=== PATIENT | male | born 1960 | race African-American/Black ===

== ENCOUNTER 2017-04-16 13:31 | Emergency (ER) | payer MEDICAID, OTHER ==
[~2017-04-16] VITALS: Ht 185.4 cm; Wt 88.6 kg
[2017-04-16] MEDS ORDERED: SULFAMETHOX/TRIMETH DS 800-160 MG/TABLET PO ONE (15:30)
[2017-04-16] MEDS ORDERED: CefTRIAXone SODIUM 1 GM/VIAL IM ONE (15:30)
[2017-04-16] MEDS ORDERED: LIDOCAINE HCL/PF 1% 2 ML VIAL IM ONE (15:30)
[2017-04-16] MEDS ORDERED: LIDOCAINE HCL 1% 10 ML VIAL INJ ONE (15:30)
[2017-04-16 15:34] VITALS: BP 153/110
== END 2017-04-16 16:31 | disposition home or self-care (01) ==
LOC: EMS 13:33
DX: L02.01 Cutaneous abscess of face (principal); L03.211 Cellulitis of face; R03.0 Elevated blood-pressure reading, without diagnosis of hypertension
CPT/HCPCS: 10060; 96372; 99283; J0696; J3490 ×2

== ENCOUNTER 2020-04-25 22:12 | Emergency (ER) | payer MEDICAID ==
[~2020-04-25] VITALS: Ht 185.4 cm; Wt 88.6 kg
[2020-04-25] MEDS ORDERED: KETOROLAC TROMETHAMINE 30 MG/ML VIAL IM ONE (22:45)
[2020-04-25] MEDS ORDERED: ACETAMINOPHEN 500 MG TABLET PO ONE (22:45)
[2020-04-25] MEDS ORDERED: LIDOCAINE 5% TRANSDERMAL PATCH TD ONE (22:45)
[2020-04-25 23:34] VITALS: BP 137/96
== END 2020-04-25 23:37 | disposition home or self-care (01) ==
LOC: EMS 22:15
DX: M54.32 Sciatica, left side (principal)
CPT/HCPCS: 96372; 99283; J1885